=== PATIENT | female | born 1960 | race Caucasian/White ===

== ENCOUNTER → 2020-05-18 | Outpatient (CLI) | payer BC ==
[~2020-05-18] VITALS: Ht 165 cm; Wt 97.0 kg
[~2020-05-18] MED LIST: BAMLANIVIMAB (NON FORM) 700 MG in NS (IVPB) 100 ML IV ONE; EPINEPHrine INJECTION 1 MG/ML AMP IM PRN; diphenhydrAMINE 50 MG/ML INJ (BENADRYL) IV PRN
[2020-05-18 08:06] VITALS: BP 144/95
[2020-05-18 09:17] VITALS: BP 122/84
== END ==
LOC: INFUSION 08:07
PROVIDERS: ATTEND Nurse Practitioner
DX: Z23 Encounter for immunization (principal); U07.1 COVID-19

== ENCOUNTER → 2022-01-29 | Outpatient (CLI) | payer BC ==
--- NOTE | 2022-01-29 13:09 | Diagnostic Imaging Report ---
PROCEDURE: Pelvic comp/transvaginal sonogram. TECHNIQUE: Complete transabdominal and transvaginal pelvic ultrasound was performed. In addition, limited pelvic Doppler was performed. INDICATION: Postmenopausal bleeding. Uterus is retroverted measuring 7.7 x 5.5 x 7.2 cm. Endometrium is thickened at 9 mm. No myometrial mass is identified. The right ovary was not visualized. Left ovary measures 3.1 x 2.3 x 3.0 cm. There is a cyst involving the left ovary measuring 2.6 x 1.9 x 2.2 cm. There is blood flow to the left ovary. No free fluid is detected. IMPRESSION: 1. Thickened endometrium of 9 mm. 2. 2.6 cm left ovarian cyst. Dictated by: Dictated on workstation # [id number]
== END ==
LOC: RAD 12:00
PROVIDERS: ATTEND Obstetrics & Gynecology Female Pelvic Medicine and Reconstructive Surgery
DX: N83.202 Unspecified ovarian cyst, left side (principal); R93.89 Abnormal findings on diagnostic imaging of other specified body structures
CPT/HCPCS: 76830; 76856